=== PATIENT | female | born 1945 | race Caucasian/White ===

== ENCOUNTER 2016-07-28 10:35 | Outpatient (CLI) | payer OTHER ==
--- NOTE | 2016-07-28 11:14 | DIAGNOSTIC IMAGING REPORT ---
PROCEDURE: XR HIP 2VW W W/O AP PELVIS-LT INDICATION: LEFT HIP PAIN TECHNIQUE: AP view of the pelvis and hips with lateral view of the left hip. COMPARISON: None. FINDINGS: LEFT HIP: No fracture or dislocation. Mild degenerative changes. PELVIS: No suspicious osseous lesion. Mild right hip degenerative changes. Soft tissues are unremarkable. IMPRESSION: 1. Mild bilateral hip degenerative changes.
== END 2016-07-28 23:00 ==
LOC: XR SRH 10:35
DX: M16.0 Bilateral primary osteoarthritis of hip (principal)

== ENCOUNTER 2016-09-11 14:03 | Outpatient (CLI) | payer OTHER | END 2016-09-12 16:00 | disposition home or self-care (01) | LOC: LAB SRH 14:03 | DX: M25.552 Pain in left hip (principal) | CPT/HCPCS: 90074; 90100 ==

== ENCOUNTER 2016-09-14 11:46 | Outpatient (CLI) | payer OTHER ==
--- NOTE | 2016-09-14 14:22 | DIAGNOSTIC IMAGING REPORT ---
PROCEDURE: XR HIP INJECTION (PRE MR) INDICATION: LEFT HIP PAIN TECHNIQUE: The patient was advised of the usual risks and complications including infection, bleeding, and allergy. Supine position. Following sterile preparation and 1% lidocaine anesthetic, fluoroscopic guidance (1.1 minutes, 386.59 mGy) was utilized to place a 22-gauge spinal needle into the anterolateral aspect of the left joint. A 5.1 ml solution (1.25 ml Isovue 200, 1.25 ml 1% lidocaine, 2.5 ml normal saline, 0.1 ml gadolinium) was infused. Subsequently, 2 mL 40 mg/mL Kenalog was infused and the needle was withdrawn. COMPARISON: Comparison made radiographs of the left hip on 07/28/2016. FINDINGS: Two AP views. Confirmation of intraarticular injection. There are minor degenerative changes with small peripheral osteophytes. The patient tolerated the procedure reasonably well and was transferred MRI, in satisfactory condition. She was instructed to resume routine activity the following day, and to call for any untoward symptoms (increasing pain/swelling). IMPRESSION: 1. Successful fluoroscopically guided diagnostic/therapeutic injection of the left joint (pre MRI). 2. MR arthrography is pending.
--- NOTE | 2016-09-14 16:18 | DIAGNOSTIC IMAGING REPORT ---
PROCEDURE: MR LOWER EXT JOINT W/CONT-LT INDICATION: LEFT HIP PAIN TECHNIQUE: Intra-articular contrast/gadolinium injected earlier in the day. T1 and STIR coronal images of the pelvis. High-resolution T1 fat sat and PD fat sat images of the left hip in sagittal, axial and coronal planes. COMPARISON: Comparison is made to radiographs of the left hip on 07/28/2016. FINDINGS: There is mild to moderate chondromalacia degenerative change of the left hip joint with a 1.3 cm anterior subchondral cyst (most likely communicates with joint space). In addition, findings suggest probable tear of the lateral acetabular labrum. The rest of the soft tissues surrounding the left hip are normal. There is no evidence of an occult fracture. Osseous pelvis is normal. Mild arthritic change of the right hip joint (partially visualized). IMPRESSION: 1. 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 2. Findings suggest probable tear of the left lateral acetabular labrum. 3. Mild arthritic change of the right hip joint (partially visualized).
== END 2016-09-14 23:00 | disposition home or self-care (01) ==
LOC: XR SRH 11:46
DX: M94.252 Chondromalacia, left hip (principal); M16.12 Unilateral primary osteoarthritis, left hip